=== PATIENT | male | born 1970 | race Caucasian/White ===

== ENCOUNTER → 2016-06-24 | Outpatient (CLI) | payer OTHER ==
[~2016-06-24] MED LIST: AMLO10 PO; ATOR1TAB18 PO; HYDR12.57 PO; LEVO25TA4 PO
== END ==
LOC: CLAB 12:04
PROVIDERS: ATTEND Family Medicine
DX: E78.5 Hyperlipidemia, unspecified (principal)
CPT/HCPCS: 36415; 80061; 84443

== ENCOUNTER → 2016-11-19 | Outpatient (CLI) | payer OTHER ==
[~2016-11-19] MED LIST changes: -AMLO10 PO
[2016-11-19 13:21] LABS: ALT (GPT) 94 U/L (12-78); ANION GAP 11 MEQ/L (5-15); BICARBONATE 26.6 MEQ/L (21.0-32.0); BLOOD UREA NITROGEN 4 MG/DL (7-18); CHLORIDE 102 MEQ/L (98-107); GLOMERULAR FILTRATION RATE 144 ML/MIN (>89); GLUCOSE,FASTING 111 MG/DL (74-99); POTASSIUM 3.7 MEQ/L (3.5-5.1); SODIUM (NA) 140 MEQ/L (136-145)
[2016-11-19 13:39] LABS: ALKALINE PHOSPHATASE 422 U/L (45-117); AST (GOT) 335 U/L (15-37); HDL CHOLESTEROL 10.6 MG/DL (40.0-60.0); LDL CHOLESTEROL 137 MG/DL (0-99); TOTAL BILIRUBIN ADULT 2.6 MG/DL (0.2-1.0)
[2016-11-19 15:06] LABS: AUTOMATED NEUTROPHIL # 3.6 TH/MM3 (1.8-7.7); BASOPHIL # 0.1 TH/MM3 (0-0.2); BASOPHIL % 1.1 % (0.0-2.0); EOSINOPHIL % 0.4 % (0.0-4.0); HEMATOCRIT 31.1 % (39.0-51.0); LYMPH % 21.8 % (9.0-44.0); LYMPHOCYTE # 1.2 TH/MM3 (1.0-4.8); MEAN CELL VOLUME 99.7 FL (80.0-100.0); MEAN CORPUSCULAR HEMOGLOBIN 34.6 PG (27.0-34.0); MEAN CORPUSCULAR HGB CONC 34.7 % (32.0-36.0); MONO % 14.2 % (0.0-8.0); NEUT % 62.5 % (16.0-70.0); PLATELET COUNT 84 TH/MM3 (150-450); RED BLOOD COUNT 3.13 MIL/MM3 (4.50-5.90); RED CELL DISTRIBUTION WIDTH 20.7 % (11.6-17.2); WHITE BLOOD COUNT 5.7 TH/MM3 (4.0-11.0)
[2016-11-19 15:09] LABS: HEMO FLAGS AUTO DIFF
[2016-11-19 17:29] LABS: BANDS 6 % (0-6); BASOPHILS 2 % (0-2); EOSINOPHILS 2 % (0-4); MYELOCYTES 1 % (0-0); POLYS (SEG NEUTROPHILS) 63 % (16-70); WBC DIFF SAMPLE 100
[2016-11-19 17:30] LABS: PLATELET ESTIMATE SMEAR LOW (NORMAL); PLATELET MORPHOLOGY NORMAL (NORMAL); SCAN/DIFF FINAL DIFF MANUAL; TARGET CELLS 2+ (NORMAL); TEARDROP RBCS 1+ (NORMAL)
== END ==
LOC: CLAB 12:07
PROVIDERS: ATTEND Physician Assistant Medical
DX: E78.5 Hyperlipidemia, unspecified (principal); E03.9 Hypothyroidism, unspecified; F10.10 Alcohol abuse, uncomplicated; R74.8 Abnormal levels of other serum enzymes
CPT/HCPCS: 36415; 80053; 80061; 80074; 84443; 85007; 85027

== ENCOUNTER → 2016-11-24 | Outpatient (CLI) | payer OTHER ==
--- NOTE | 2016-11-24 14:12 | RADRPT ---
EXAM DATE/TIME: 11/24/2016 10:31 [place] COMPARISON: No previous studies available for comparison. INDICATIONS : Adominal bloating. MEDICAL HISTORY : Hypertension. Elevated liver enzymes. ETOH abuse. SURGICAL HISTORY : Gynecomastia surgery. Perferated ulcer surgery. ENCOUNTER: Initial ACUITY: 1 day PAIN SCORE: 3/10 LOCATION: Bilateral abdomen. MEASUREMENTS: LIVER: 18.3 cm length COMMON DUCT: 10 mm RIGHT KIDNEY: 11.1 x 5.5 x 4.6 cm SPLEEN: 12.7 cm length FINDINGS: LIVER: Enlarged with increased echogenicity suggesting fatty infiltration. No focal mass. No intrahepatic bi liary ductal dilatation. COMMON DUCT: Mildly dilated GALLBLADDER: Distended with some sludge present. PANCREAS: The visualized portions are within normal limits. RIGHT KIDNEY: No hydronephrosis, stone or mass. SPLEEN: Mildly enlarged CONCLUSION: Hepatosplenomegaly with likely hepatic steatosis. Mild extrahepatic biliary ductal dilatation. Gallbladder sludge. Ryan Estrada MD on November 24, 2016 at 14:08 Board Certified Radiologist. This report was verified electronically.
== END ==
LOC: HRAD 10:04
PROVIDERS: ATTEND Family Medicine
DX: R14.0 Abdominal distension (gaseous) (principal)
CPT/HCPCS: 76705